=== PATIENT | male | born 1940 | race Caucasian/White ===

== ENCOUNTER 2024-04-20 20:45 | Inpatient (IN) | payer MEDICARE, OTHER ==
[~2024-04-20] VITALS: Ht 162.6 cm; Wt 56.7 kg
[2024-04-20] MEDS ORDERED: MAGNESIUM HYDROXIDE 30 ML LIQUID UDC PO PRN (21:15)
[2024-04-20] MEDS ORDERED: ACETAMINOPHEN 325 MG TABLET PO PRN (21:15)
[2024-04-20] MEDS: BLOOD SUGAR DIAGNOSTIC 1 EACH STRIP VI ONE (21:21)
[2024-04-20] MEDS ORDERED: METH100V6 PO (21:40)
[2024-04-20] MEDS ORDERED: SENN-228 PO (21:40)
[2024-04-20] MEDS ORDERED: LATA2.5D15 EACHEYE (21:40)
[2024-04-20] MEDS ORDERED: AMLO10TA59 PO (21:40)
[2024-04-20] MEDS ORDERED: BISA10SU61 RC (21:40)
[2024-04-20] MEDS ORDERED: HYDR-894 PO (21:40)
[2024-04-20] MEDS ORDERED: MULT-213 PO (21:40)
[2024-04-20] MEDS ORDERED: GABA300C PO (21:40)
[2024-04-20] MEDS ORDERED: NA P133E RC (21:40)
[2024-04-20] MEDS ORDERED: ASPI81TA31 PO (21:40)
[2024-04-20] MEDS ORDERED: ATOR40TA PO (21:40)
[2024-04-20] MEDS ORDERED: DOCU-141 PO (21:40)
[2024-04-20] MEDS ORDERED: ZOLPIDEM 5 MG TABLET PO PRN (23:00)
[2024-04-21 08:18] VITALS: BP 137/85; TEMP 98.3; O2SAT 98
[2024-04-21] MEDS ORDERED: MAGN400O6 PO (08:56)
[2024-04-21] MEDS ORDERED: GABA100C PO (08:56)
[2024-04-21] MEDS ORDERED: CHOL-35 PO (08:56)
[2024-04-21] MEDS: ASPIRIN 81 MG TAB.CHEW PO SCH (13:47)
[2024-04-21] MEDS: SERTRALINE HCL 50 MG TABLET PO SCH (13:47)
[2024-04-21] MEDS: CHOLECALCIFEROL 1,000 UNIT TABLET PO SCH (14:34)
[2024-04-21] MEDS: AMLODIPINE 10 MG TABLET PO SCH (14:34)
[2024-04-21] MEDS: GABAPENTIN 100 MG CAPSULE PO SCH (14:34)
[2024-04-21 16:28] VITALS: BP 124/81; TEMP 98; O2SAT 100
[2024-04-21] MEDS: MULTIVITAMINS,THERAPEUTIC TABLET PO SCH (17:19)
[2024-04-21] MEDS: SENNOSIDES/DOCUSATE SODIUM TABLET PO SCH (17:19)
[2024-04-21 20:06] VITALS: BP 130/78; TEMP 98.1; O2SAT 98
[2024-04-21] MEDS: QUETIAPINE FUMARATE 25 MG TABLET PO PRN (21:25)
[2024-04-21] MEDS: LATANOPROST OPHT DROP 2.5 ML BOTTLE EACHEYE SCH (21:26)
[2024-04-21] MEDS: ATORVASTATIN 40 MG TABLET PO SCH (21:26)
[2024-04-22 07:32] LABS: BASOPHILS # (AUTO) 0.1 K/UL (0.0-0.2); BASOPHILS % (AUTO) 1.1 % (0.0-2.0); EOSINOPHILS # (AUTO) 0.1 K/uL (0.0-0.7); EOSINOPHILS % (AUTO) 1.9 % (0.0-7.0); HEMATOCRIT 40.8 % (36.7-47.1); HEMOGLOBIN 13.5 g/dL (12.5-16.3); LYMPHOCYTES # (AUTO) 2.2 K/uL (0.8-4.8); LYMPHOCYTES % (AUTO) 30.1 % (20.5-51.5); MEAN CORPUSCULAR HEMOGLOBIN 28.5 uug (23.8-33.4); MEAN CORPUSCULAR HGB CONC 33 g/dL (32.5-36.3); MEAN CORPUSCULAR VOLUME 86.1 fL (73.0-96.2); MONOCYTES # (AUTO) 0.6 K/uL (0.1-1.30); MONOCYTES % (AUTO) 8.7 % (0.0-11.0); NEUTROPHILS # (AUTO) 4.3 K/uL (1.8-8.9); NEUTROPHILS % (AUTO) 58.2 % (38.5-71.5); PLATELET COUNT (AUTO) 182 K/uL (152-348); RED BLOOD CELL COUNT(AUTO) 4.74 MIL/uL (4.06-5.63); RED CELL DISTRIBUTION WIDTH 14.9 % (12.1-16.2); WHITE BLOOD COUNT (AUTO) 7.3 K/uL (3.6-10.2)
[2024-04-22 07:45] LABS: DIFFERENTIAL COMMENT 1
[2024-04-22 07:53] VITALS: BP 155/77; TEMP 98; O2SAT 98
[2024-04-22 07:59] LABS: ALANINE AMINOTRANSFERASE 22 U/L (16-63); ALBUMIN 3.3 g/dL (3.4-5.0); ALKALINE PHOSPHATASE 104 U/L (50-136); ASPARTATE AMINOTRANSFERASE 22 U/L (15-37); BILIRUBIN,TOTAL 1.7 mg/dL (0.2-1.0); CARBON DIOXIDE 26 mmol/L (21-32); CHLORIDE 103 mmol/L (98-107); CREATININE 0.9 mg/dL (0.6-1.3); GLUCOSE 100 mg/dL (74-106); SODIUM SERUM 138 mmol/L (136-145); TOTAL PROTEIN, SERUM 7.3 g/dL (6.4-8.2); UREA NITROGEN, BLOOD 20 mg/dL (7-18)
[2024-04-22] MEDS: ENSURE ENLIVE (VAN) 240 ML LIQUID PO SCH (09:00)
[2024-04-22 15:09] VITALS: BP 113/64; TEMP 98; O2SAT 99
[2024-04-22 20:20] VITALS: BP 133/69; TEMP 97.1; O2SAT 98
[2024-04-22] MEDS: MAG HYDROX/AL HYDROX/SIMETH 30 ML LIQUID UDC PO PRN (20:22)
[2024-04-23 08:05] VITALS: BP 141/87; TEMP 98; O2SAT 98
[2024-04-23 15:14] VITALS: BP 113/63; TEMP 98; O2SAT 98
[2024-04-23 19:55] VITALS: BP 130/52; TEMP 98.1; O2SAT 98
[2024-04-24 08:20] VITALS: BP 163/82; TEMP 97.9; O2SAT 99
[2024-04-24 16:14] VITALS: BP 108/67; TEMP 98; O2SAT 100
[2024-04-24 20:00] VITALS: BP 129/70; TEMP 97.2; O2SAT 96
[2024-04-24] MEDS: ZOLPIDEM 5 MG TABLET PO PRN (21:06)
[2024-04-25 08:16] VITALS: BP 156/93; TEMP 98; O2SAT 99
[2024-04-25 16:50] VITALS: BP 150/81; TEMP 98.3; O2SAT 98
[2024-04-25 19:44] VITALS: BP 144/72; TEMP 98; O2SAT 97
[2024-04-25] MEDS: OXCARBAZEPINE 150 MG TABLET PO SCH (21:24)
[2024-04-26 07:30] VITALS: BP 128/76; TEMP 98; O2SAT 100
[2024-04-26 15:13] VITALS: BP 115/54; TEMP 98; O2SAT 98
[2024-04-26 19:05] LABS: BASOPHILS % (AUTO) 0.5 % (0.0-2.0); EOSINOPHILS % (AUTO) 0.3 % (0.0-7.0); HEMATOCRIT 43.8 % (36.7-47.1); LYMPHOCYTES # (AUTO) 1.8 K/uL (0.8-4.8); LYMPHOCYTES % (AUTO) 25.2 % (20.5-51.5); MEAN CORPUSCULAR HEMOGLOBIN 28.8 uug (23.8-33.4); MEAN CORPUSCULAR HGB CONC 34 g/dL (32.5-36.3); MONOCYTES # (AUTO) 0.4 K/uL (0.1-1.30); MONOCYTES % (AUTO) 5.5 % (0.0-11.0); NEUTROPHILS # (AUTO) 4.8 K/uL (1.8-8.9); NEUTROPHILS % (AUTO) 68.5 % (38.5-71.5); PLATELET COUNT (AUTO) 180 K/uL (152-348); RED BLOOD CELL COUNT(AUTO) 5.21 MIL/uL (4.06-5.63); RED CELL DISTRIBUTION WIDTH 14.2 % (12.1-16.2)
[2024-04-26 19:06] LABS: DIFFERENTIAL COMMENT 1
[2024-04-26 19:15] LABS: CALCIUM 9.2 mg/dL (8.5-10.1); CARBON DIOXIDE 26 mmol/L (21-32); CHLORIDE 97 mmol/L (98-107); GLUCOSE 133 mg/dL (74-106); POTASSIUM 3.7 mmol/L (3.5-5.1); SODIUM SERUM 132 mmol/L (136-145); UREA NITROGEN, BLOOD 15 mg/dL (7-18)
[2024-04-26 19:58] VITALS: BP 142/54; TEMP 97.9; O2SAT 98
[2024-04-26] MEDS ORDERED: AMOXICILLIN-CLAVUL 500-125MG TABLET ONE (21:25)
[2024-04-26] MEDS ORDERED: ATORVASTATIN 20 MG TABLET ONE (21:25)
[2024-04-26] MEDS: AMOXICILLIN-CLAVUL 500-125MG TABLET PO SCH (21:52)
[2024-04-27 07:33] LABS: BASOPHILS % (AUTO) 0.6 % (0.0-2.0); EOSINOPHILS # (AUTO) 0.2 K/uL (0.0-0.7); EOSINOPHILS % (AUTO) 2.8 % (0.0-7.0); HEMATOCRIT 41.9 % (36.7-47.1); HEMOGLOBIN 14.4 g/dL (12.5-16.3); LYMPHOCYTES # (AUTO) 1.9 K/uL (0.8-4.8); LYMPHOCYTES % (AUTO) 25.2 % (20.5-51.5); MEAN CORPUSCULAR HEMOGLOBIN 29.1 uug (23.8-33.4); MEAN CORPUSCULAR HGB CONC 34 g/dL (32.5-36.3); MEAN CORPUSCULAR VOLUME 84.8 fL (73.0-96.2); MONOCYTES # (AUTO) 0.7 K/uL (0.1-1.30); MONOCYTES % (AUTO) 9.5 % (0.0-11.0); NEUTROPHILS # (AUTO) 4.6 K/uL (1.8-8.9); NEUTROPHILS % (AUTO) 61.9 % (38.5-71.5); PLATELET COUNT (AUTO) 175 K/uL (152-348); RED BLOOD CELL COUNT(AUTO) 4.94 MIL/uL (4.06-5.63); RED CELL DISTRIBUTION WIDTH 14.3 % (12.1-16.2); WHITE BLOOD COUNT (AUTO) 7.4 K/uL (3.6-10.2)
[2024-04-27 07:42] LABS: DIFFERENTIAL COMMENT 1
[2024-04-27 07:49] LABS: CALCIUM 9.2 mg/dL (8.5-10.1); CARBON DIOXIDE 28 mmol/L (21-32); CHLORIDE 100 mmol/L (98-107); CREATININE 0.9 mg/dL (0.6-1.3); GLUCOSE 99 mg/dL (74-106); MAGNESIUM 2.1 mg/dL (1.8-2.4); PHOSPHOROUS 3.6 mg/dL (2.5-4.9); POTASSIUM 3.9 mmol/L (3.5-5.1); SODIUM SERUM 134 mmol/L (136-145); UREA NITROGEN, BLOOD 12 mg/dL (7-18)
[2024-04-27 08:08] VITALS: BP 114/73; TEMP 98.4; O2SAT 98
[2024-04-27 15:24] VITALS: BP 142/69; TEMP 98; O2SAT 98
[2024-04-27 21:36] VITALS: BP 141/74; TEMP 98; O2SAT 98
[2024-04-28 08:16] VITALS: BP 131/77; TEMP 97.7; O2SAT 100
[2024-04-28 16:24] VITALS: BP 132/55; TEMP 98.1; O2SAT 100
[2024-04-28 19:57] VITALS: BP 136/61; TEMP 98.1; O2SAT 99
[2024-04-28] MEDS: ATORVASTATIN 10 MG TABLET PO SCH (20:54)
[2024-04-29 08:36] LABS: CALCIUM 9.3 mg/dL (8.5-10.1); CARBON DIOXIDE 28 mmol/L (21-32); CHLORIDE 100 mmol/L (98-107); GLUCOSE 141 mg/dL (74-106); POTASSIUM 3.7 mmol/L (3.5-5.1); SODIUM SERUM 137 mmol/L (136-145); UREA NITROGEN, BLOOD 17 mg/dL (7-18)
[2024-04-29 08:50] VITALS: BP 125/72; TEMP 98; O2SAT 98
[2024-04-29 15:29] VITALS: BP 133/73; TEMP 98; O2SAT 98
[2024-04-29 19:43] VITALS: BP_SYST 117; BP_SYST 133; BP_DIAS 62; BP_DIAS 73; TEMP 98; O2SAT 98
[2024-04-30 07:30] VITALS: BP 148/89; TEMP 97.3; O2SAT 99
[2024-04-30 17:02] VITALS: BP 132/71; TEMP 97.3; O2SAT 97
[2024-04-30 20:17] VITALS: BP 141/78; TEMP 97.8; O2SAT 96
[2024-04-30] MEDS: OXCARBAZEPINE 150 MG TABLET PO SCH (20:53)
[2024-05-01 08:18] VITALS: BP 122/57; TEMP 98.3; O2SAT 100
[2024-05-01 16:22] VITALS: BP 140/75; TEMP 98; O2SAT 97
[2024-05-01 20:15] VITALS: BP 136/66; TEMP 98.1; O2SAT 96
[2024-05-02 08:20] VITALS: BP 130/63; TEMP 98.1; O2SAT 99
[2024-05-02 08:27] VITALS: BP 136/72
== END 2024-05-02 15:45 | DRG 885 ==
LOC: GPS 20:45
PROVIDERS: ADMIT Psychiatry & Neurology Psychiatry; ATTEND Nurse Practitioner Acute Care
DX: F39 Unspecified mood [affective] disorder (principal); E44.1 Mild protein-calorie malnutrition; F03.911 Unspecified dementia, unspecified severity, with agitation; F03.92 Unspecified dementia, unspecified severity, with psychotic disturbance; E78.5 Hyperlipidemia, unspecified; J84.10 Pulmonary fibrosis, unspecified; E88.09 Other disorders of plasma-protein metabolism, not elsewhere classified; M15.9 Polyosteoarthritis, unspecified; I10 Essential (primary) hypertension; Z87.01 Personal history of pneumonia (recurrent); Z79.899 Other long term (current) drug therapy; F32.A Depression, unspecified; G47.00 Insomnia, unspecified
CPT/HCPCS: 36415; 71045; 83735; 84100; 85025

== ENCOUNTER 2024-06-04 14:00 | Inpatient (IN) | payer MEDICARE, OTHER ==
[~2024-06-04] VITALS: Ht 172.7 cm; Wt 72.6 kg
[~2024-06-04 14:00] MED LIST: AMLO10TA59 PO; ASPI81TA31 PO; ATOR40TA PO; BISA10SU61 RC; CHOL-35 PO; DOCU-141 PO; GABA100C PO; HYDR-894 PO; LATA2.5D15 EACHEYE; MAGN400O6 PO; METH100V6 PO; MULT-213 PO; NA P133E RC; SENN-228 PO
[2024-06-04] MEDS: IV NORMAL SALINE 1000 ML BAG IV ONE ×2 (14:30→17:07)
[2024-06-04] MEDS ORDERED: METRONIDAZOLE 500 MG/NS 100ML 100 ML IV ONE (14:33)
[2024-06-04] MEDS ORDERED: VANCOMYCIN IV 200 ML ONE (14:33)
[2024-06-04] MEDS ORDERED: CEFTRIAXONE /D5W 50ML IVPB **ER PYXIS IV ONE (14:33)
[2024-06-04] MEDS: CEFTRIAXONE 1 G in IV DEXTROSE 5% 50 ML IV ONE (14:33)
[2024-06-04 14:42] LABS: BASOPHILS # (AUTO) 0.1 K/UL (0.0-0.2); BASOPHILS % (AUTO) 0.2 % (0.0-2.0); EOSINOPHILS # (AUTO) 0.3 K/uL (0.0-0.7); EOSINOPHILS % (AUTO) 0.8 % (0.0-7.0); HEMOGLOBIN 18.3 g/dL (12.5-16.3); LYMPHOCYTES # (AUTO) 0.6 K/uL (0.8-4.8); LYMPHOCYTES % (AUTO) 1.4 % (20.5-51.5); MEAN CORPUSCULAR HGB CONC 33 g/dL (32.5-36.3); MEAN CORPUSCULAR VOLUME 84.2 fL (73.0-96.2); MONOCYTES # (AUTO) 1.1 K/uL (0.1-1.30); MONOCYTES % (AUTO) 2.9 % (0.0-11.0); NEUTROPHILS # (AUTO) 36.2 K/uL (1.8-8.9); NEUTROPHILS % (AUTO) 94.7 % (38.5-71.5); PLATELET COUNT (AUTO) 378 K/uL (152-348); RED CELL DISTRIBUTION WIDTH 14.5 % (12.1-16.2)
[2024-06-04 14:47] LABS: ABG BASE EXCESS -7.4 mmol/L (-2.0-3.0); ABG HCO3 13.8 mmol/L (21.0-28.0); ABG PCO2 21.7 mmHg (35.0-48.0); ABG PH 7.421 (7.350-7.450); ABG PO2 98.9 mmHg (83.0-108.0); ABG SITE RIGHT RADIAL; ABG TOTAL HEMOGLOBIN 19.9 G/dL (13.5-17.5); AaDO2 97.7 mmHg; COHb 0.2 % (0.5-1.5); MetHb 0.8 % (0.0-1.5); O2Hb 96.7 % (94.0-98.0)
[2024-06-04 14:50] LABS: DIFFERENTIAL COMMENT 1; RED BLOOD CELL COUNT(AUTO) 6.54 MIL/uL (4.06-5.63)
[2024-06-04 14:51] LABS: CALCIUM 8.7 mg/dL (8.5-10.1); CARBON DIOXIDE 18 mmol/L (21-32); CHLORIDE 92 mmol/L (98-107); CREATININE 3.5 mg/dL (0.6-1.3); GLUCOSE 155 mg/dL (74-106); POTASSIUM 4.4 mmol/L (3.5-5.1); SODIUM SERUM 128 mmol/L (136-145); WHITE BLOOD COUNT (AUTO) 38.2 K/uL (3.6-10.2)
[2024-06-04] MEDS ORDERED: MAGN400T30 PO (14:57)
[2024-06-04] MEDS ORDERED: ACET-2154 PO (14:57)
[2024-06-04] MEDS ORDERED: ACET-2605 PO (14:57)
[2024-06-04] MEDS ORDERED: BACL10TA PO (14:57)
[2024-06-04] MEDS: VANCOMYCIN IV 1,000 MG in IV DEXTROSE 5% 250 ML IV ONE (15:00)
[2024-06-04 15:03] LABS: LACTIC ACID 3.5 mmol/L (0.4-2.0); UREA NITROGEN, BLOOD 90 mg/dL (7-18)
[2024-06-04 15:04] LABS: ALANINE AMINOTRANSFERASE 25 U/L (16-63); ALBUMIN 2.2 g/dL (3.4-5.0); ALKALINE PHOSPHATASE 118 U/L (50-136); ASPARTATE AMINOTRANSFERASE 45 U/L (15-37); BILIRUBIN,DIRECT 0.4 mg/dL (0.0-0.2); BILIRUBIN,TOTAL 1.1 mg/dL (0.2-1.0); NT-PRO BNP 3718 pg/mL (0-125); TOTAL PROTEIN, SERUM 6.3 g/dL (6.4-8.2)
[2024-06-04] MEDS: METRONIDAZOLE 500 MG/NS 100ML 100 ML IV ONE (15:17)
[2024-06-04 15:30] LABS: ANISOCYTOSIS 1+; BAND % (MANUAL) 12 % (0-10); LYMPHOCYTES % (MANUAL) 4 % (20-40); MONOCYTES % (MANUAL) 1 % (2-10); NEUTROPHILS % (MANUAL) 83 % (42-75); PLATELET ESTIMATE ADEQUATE; TEAR DROP CELLS 1+
[2024-06-04 15:31] LABS: OVALOCYTES OCC
[2024-06-04 15:31] LABS: *BILIRUBIN,URIN 1+ (NEGATIVE); *BLOOD, URINE NEGATIVE (NEGATIVE); *CLARITY,URINE CLEAR (CLEAR); *KETONES,URINE NEGATIVE (NEGATIVE); *PROTEIN,URINE 1+ (NEGATIVE); *UROBILINOGEN,URINE 0.2 E.U./dl (NORMAL); LEUKOCYTE ESTERASE ,URINE NEGATIVE (NEGATIVE); NITRITE, URINE NEGATIVE (NEGATIVE); PH,URINE 5.5 (5.0-8.0); UGLUCOSE NEGATIVE (NEGATIVE)
[2024-06-04 15:39] LABS: *COLOR,URINE DARK YELLOW (YELLOW)
[2024-06-04 16:02] LABS: BACTERIA,URINE FEW /HPF (NONE SEEN); RBC,URINE NONE SEEN /HPF (0-3); SQUAMOUS EPITHELIAL CELL,UR FEW /HPF (NONE SEEN); WBC,URINE 0-3 /HPF (0-3)
[2024-06-04] MEDS: IV NS 1000 ML 1,000 ML IV SCH (17:45)
[2024-06-04] MEDS ORDERED: MAGNESIUM HYDROXIDE 30 ML LIQUID UDC PO PRN (17:45)
[2024-06-04] MEDS ORDERED: ACETAMINOPHEN 325 MG TABLET PO PRN (17:45)
[2024-06-04] MEDS: ENOXAPARIN SODIUM 40 MG/0.4 ML DISP.SYRIN SQ SCH (18:07)
[2024-06-04] MEDS ORDERED: ENOXAPARIN SODIUM 40 MG/0.4 ML DISP.SYRIN SQ ONE (18:07)
[2024-06-04 19:55] VITALS: BP 130/54; TEMP 97.4; O2SAT 97
[2024-06-04 20:45] LABS: BASOPHILS % (AUTO) 0.1 % (0.0-2.0); EOSINOPHILS # (AUTO) 0.1 K/uL (0.0-0.7); EOSINOPHILS % (AUTO) 0.3 % (0.0-7.0); HEMATOCRIT 48.9 % (36.7-47.1); HEMOGLOBIN 16.3 g/dL (12.5-16.3); LYMPHOCYTES # (AUTO) 0.5 K/uL (0.8-4.8); LYMPHOCYTES % (AUTO) 1.3 % (20.5-51.5); MEAN CORPUSCULAR HEMOGLOBIN 27.8 uug (23.8-33.4); MEAN CORPUSCULAR HGB CONC 33 g/dL (32.5-36.3); MEAN CORPUSCULAR VOLUME 83.2 fL (73.0-96.2); MONOCYTES # (AUTO) 1.1 K/uL (0.1-1.30); MONOCYTES % (AUTO) 3.2 % (0.0-11.0); NEUTROPHILS # (AUTO) 33.9 K/uL (1.8-8.9); NEUTROPHILS % (AUTO) 95.1 % (38.5-71.5); PLATELET COUNT (AUTO) 303 K/uL (152-348); RED BLOOD CELL COUNT(AUTO) 5.87 MIL/uL (4.06-5.63); RED CELL DISTRIBUTION WIDTH 14.4 % (12.1-16.2)
[2024-06-04 20:50] LABS: DIFFERENTIAL COMMENT 1
[2024-06-04 20:52] LABS: CALCIUM 6.7 mg/dL (8.5-10.1); CARBON DIOXIDE 17 mmol/L (21-32); CHLORIDE 102 mmol/L (98-107); CREATININE 2.5 mg/dL (0.6-1.3); GLUCOSE 106 mg/dL (74-106); POTASSIUM 3.9 mmol/L (3.5-5.1); SODIUM SERUM 134 mmol/L (136-145); UREA NITROGEN, BLOOD 78 mg/dL (7-18)
[2024-06-04 20:53] LABS: WHITE BLOOD COUNT (AUTO) 35.7 K/uL (3.6-10.2)
[2024-06-04 21:15] LABS: BAND % (MANUAL) 9 % (0-10); LYMPHOCYTES % (MANUAL) 2 % (20-40); MONOCYTES % (MANUAL) 3 % (2-10); MYELOCYTES % 1 % (0-0); NEUTROPHILS % (MANUAL) 85 % (42-75)
[2024-06-04 21:16] LABS: ANISOCYTOSIS 1+; PLATELET ESTIMATE ADEQUATE
[2024-06-04] MEDS ORDERED: METRONIDAZOLE 500 MG/NS 100ML 200 ML IV ONE (21:19)
[2024-06-04] MEDS: METRONIDAZOLE 500 MG/NS 100ML 500 MG in PREMIXED 1 EACH IV SCH (22:46)
[2024-06-05 00:18] VITALS: BP 91/70; TEMP 97.5; O2SAT 97
[2024-06-05] MEDS: ONDANSETRON 4 MG/2 ML VIAL IV PRN (02:33)
[2024-06-05 04:47] VITALS: BP 137/73; TEMP 97.5; O2SAT 100
[2024-06-05 06:40] LABS: BASOPHILS # (AUTO) 0.1 K/UL (0.0-0.2); BASOPHILS % (AUTO) 0.5 % (0.0-2.0); EOSINOPHILS # (AUTO) 0.3 K/uL (0.0-0.7); EOSINOPHILS % (AUTO) 0.9 % (0.0-7.0); HEMATOCRIT 48.6 % (36.7-47.1); HEMOGLOBIN 16.3 g/dL (12.5-16.3); LYMPHOCYTES # (AUTO) 0.3 K/uL (0.8-4.8); LYMPHOCYTES % (AUTO) 1.1 % (20.5-51.5); MEAN CORPUSCULAR HEMOGLOBIN 28.2 uug (23.8-33.4); MEAN CORPUSCULAR HGB CONC 34 g/dL (32.5-36.3); MONOCYTES # (AUTO) 0.2 K/uL (0.1-1.30); MONOCYTES % (AUTO) 0.5 % (0.0-11.0); NEUTROPHILS # (AUTO) 29.5 K/uL (1.8-8.9); PLATELET COUNT (AUTO) 290 K/uL (152-348); RED BLOOD CELL COUNT(AUTO) 5.78 MIL/uL (4.06-5.63); RED CELL DISTRIBUTION WIDTH 14.6 % (12.1-16.2)
[2024-06-05 06:54] LABS: CALCIUM 7.1 mg/dL (8.5-10.1); CARBON DIOXIDE 14 mmol/L (21-32); CHLORIDE 105 mmol/L (98-107); CREATININE 2.3 mg/dL (0.6-1.3); GLUCOSE 119 mg/dL (74-106); MAGNESIUM 3.5 mg/dL (1.8-2.4); PHOSPHOROUS 5.7 mg/dL (2.5-4.9); POTASSIUM 3.7 mmol/L (3.5-5.1); SODIUM SERUM 134 mmol/L (136-145)
[2024-06-05 06:57] LABS: DIFFERENTIAL COMMENT 1; WHITE BLOOD COUNT (AUTO) 30.4 K/uL (3.6-10.2)
[2024-06-05 07:00] LABS: UREA NITROGEN, BLOOD 82 mg/dL (7-18)
[2024-06-05 07:59] VITALS: BP 131/77; TEMP 97.6; O2SAT 99
[2024-06-05] MEDS: VANCOMYCIN IV 500 MG in IV DEXTROSE 5% 100 ML IV ONE (08:50)
[2024-06-05 12:00] VITALS: BP 142/53; TEMP 97.6; O2SAT 98
[2024-06-05] MEDS ORDERED: MAG30ORA PO (12:53)
[2024-06-05] MEDS ORDERED: ASPI-1169 PO (12:54)
[2024-06-05] MEDS ORDERED: CRAN450T9 PO (12:56)
[2024-06-05] MEDS ORDERED: ATOR10TA PO (12:56)
[2024-06-05] MEDS ORDERED: SENN8.6T19 PO (12:58)
[2024-06-05] MEDS ORDERED: SERT-438 PO (12:58)
[2024-06-05] MEDS: CEFTRIAXONE 1 G in IV DEXTROSE 5% 50 ML IV SCH (13:39)
[2024-06-05] MEDS: SERTRALINE HCL 50 MG TABLET PO SCH (14:52)
[2024-06-05 15:09] LABS: BAND % (MANUAL) 48 % (0-10); LYMPHOCYTES % (MANUAL) 2 % (20-40); METAMYELOCYTES % 7 % (0-1); NEUTROPHILS % (MANUAL) 43 % (42-75); PLATELET ESTIMATE ADEQUATE
[2024-06-05 16:16] VITALS: BP 131/63; TEMP 97.5; O2SAT 98
[2024-06-05] MEDS: GABAPENTIN 100 MG CAPSULE PO SCH (17:00)
[2024-06-05 19:50] VITALS: BP 117/71; TEMP 98.1; O2SAT 96
[2024-06-05] MEDS: HEPARIN SODIUM,PORCINE 5,000 UNITS/ML VIAL SQ SCH (20:35)
[2024-06-05] MEDS ORDERED: MEROPENEM 500 MG in IV NORMAL SALINE 50 ML IV ONE (22:30)
[2024-06-06] VITALS (53 sets, daily range): BP systolic 52–181; BP diastolic 32–81; TEMP 95.8–97.3; O2SAT 70–100
[2024-06-06] MEDS ORDERED: MEROPENEM 500MG/NS 50ML PB ***ER PYXIS ONLY IV ONE (00:32)
[2024-06-06] MEDS: MEROPENEM 500 MG in IV NORMAL SALINE 50 ML IV ONE (00:38)
[2024-06-06 06:41] LABS: BASOPHILS # (AUTO) 0.1 K/UL (0.0-0.2); BASOPHILS % (AUTO) 0.1 % (0.0-2.0); EOSINOPHILS # (AUTO) 0.7 K/uL (0.0-0.7); EOSINOPHILS % (AUTO) 1.7 % (0.0-7.0); HEMATOCRIT 46.3 % (36.7-47.1); HEMOGLOBIN 15.2 g/dL (12.5-16.3); LYMPHOCYTES # (AUTO) 0.4 K/uL (0.8-4.8); LYMPHOCYTES % (AUTO) 1.1 % (20.5-51.5); MEAN CORPUSCULAR HGB CONC 33 g/dL (32.5-36.3); MEAN CORPUSCULAR VOLUME 85.1 fL (73.0-96.2); MONOCYTES # (AUTO) 0.2 K/uL (0.1-1.30); MONOCYTES % (AUTO) 0.6 % (0.0-11.0); NEUTROPHILS # (AUTO) 38.6 K/uL (1.8-8.9); NEUTROPHILS % (AUTO) 96.5 % (38.5-71.5); PLATELET COUNT (AUTO) 240 K/uL (152-348); RED BLOOD CELL COUNT(AUTO) 5.44 MIL/uL (4.06-5.63)
[2024-06-06 06:52] LABS: DIFFERENTIAL COMMENT 1
[2024-06-06 06:57] LABS: CALCIUM 7.6 mg/dL (8.5-10.1); CARBON DIOXIDE 12 mmol/L (21-32); CHLORIDE 108 mmol/L (98-107); CREATININE 2.5 mg/dL (0.6-1.3); GLUCOSE 96 mg/dL (74-106); MAGNESIUM 3.5 mg/dL (1.8-2.4); PHOSPHOROUS 5.7 mg/dL (2.5-4.9); POTASSIUM 4.2 mmol/L (3.5-5.1); SODIUM SERUM 138 mmol/L (136-145)
[2024-06-06 07:01] LABS: UREA NITROGEN, BLOOD 92 mg/dL (7-18)
[2024-06-06] MEDS: VANCOMYCIN IV 500 MG in IV DEXTROSE 5% 100 ML IV ONE (08:40)
[2024-06-06] MEDS ORDERED: SERTRALINE HCL PO SCH (09:00)
[2024-06-06] MEDS ORDERED: IV NORMAL SALINE 500 ML BAG IV ONE (09:45)
[2024-06-06] MEDS: IV NORMAL SALINE 500 ML IV ONE (09:45)
[2024-06-06] MEDS ORDERED: NOREPINEPHRINE 8MG/NS 250ML 250 ML IV PRN (11:15)
[2024-06-06] MEDS: NOREPINEPHRINE 8MG/NS 250ML 250 ML IV PRN (11:53)
[2024-06-06] MEDS: SODIUM BICARBONATE 8.4% 50 MEQ in IV D5 1/2 NS 1000 ML 1,000 ML IV SCH (11:55)
[2024-06-06] MEDS: PROPOFOL 100 ML IV PRN (11:55)
[2024-06-06] MEDS: NOREPINEPHRINE 8MG/NS 250ML 250 ML IV ONE (12:02)
[2024-06-06 12:05] LABS: ABG BASE EXCESS -16.2 mmol/L (-2.0-3.0); ABG HCO3 6.7 mmol/L (21.0-28.0); ABG PCO2 13.9 mmHg (35.0-48.0); ABG PH 7.304 (7.350-7.450); ABG PO2 85.4 mmHg (83.0-108.0); ABG SITE RIGHT RADIAL; ABG TOTAL HEMOGLOBIN 16.3 G/dL (13.5-17.5); AaDO2 95.9 mmHg; COHb 0.7 % (0.5-1.5); MetHb 0.2 % (0.0-1.5); O2Hb 94.6 % (94.0-98.0)
[2024-06-06] MEDS: MEROPENEM 500 MG in IV NORMAL SALINE 50 ML IV SCH (12:08)
[2024-06-06 12:25] LABS: BASOPHILS # (AUTO) 0.1 K/UL (0.0-0.2); BASOPHILS % (AUTO) 0.1 % (0.0-2.0); EOSINOPHILS # (AUTO) 0.8 K/uL (0.0-0.7); EOSINOPHILS % (AUTO) 1.6 % (0.0-7.0); HEMATOCRIT 47.3 % (36.7-47.1); HEMOGLOBIN 15.1 g/dL (12.5-16.3); LYMPHOCYTES # (AUTO) 0.6 K/uL (0.8-4.8); LYMPHOCYTES % (AUTO) 1.2 % (20.5-51.5); MEAN CORPUSCULAR HGB CONC 32 g/dL (32.5-36.3); MEAN CORPUSCULAR VOLUME 87.4 fL (73.0-96.2); MONOCYTES # (AUTO) 0.3 K/uL (0.1-1.30); MONOCYTES % (AUTO) 0.5 % (0.0-11.0); NEUTROPHILS # (AUTO) 51.3 K/uL (1.8-8.9); NEUTROPHILS % (AUTO) 96.6 % (38.5-71.5); PLATELET COUNT (AUTO) 223 K/uL (152-348); RED BLOOD CELL COUNT(AUTO) 5.41 MIL/uL (4.06-5.63); RED CELL DISTRIBUTION WIDTH 15.3 % (12.1-16.2)
[2024-06-06 12:28] LABS: DIFFERENTIAL COMMENT 1; WHITE BLOOD COUNT (AUTO) 53.1 K/uL (3.6-10.2)
[2024-06-06 12:33] LABS: CALCIUM 7.6 mg/dL (8.5-10.1); CARBON DIOXIDE 10 mmol/L (21-32); CHLORIDE 109 mmol/L (98-107); CREATININE 2.8 mg/dL (0.6-1.3); GLUCOSE 69 mg/dL (74-106); POTASSIUM 4.8 mmol/L (3.5-5.1); SODIUM SERUM 141 mmol/L (136-145); UREA NITROGEN, BLOOD 91 mg/dL (7-18)
[2024-06-06] MEDS: IV LACTATED RINGERS SOLUTION 1,000 ML BAG IV ONE (12:40)
[2024-06-06] MEDS: FAMOTIDINE. 20 MG/2 ML VIAL IV SCH (12:50)
[2024-06-06] MEDS: HYDROCORTISONE SOD SUCCINATE 100 MG/2 ML VIAL IV SCH (12:50)
[2024-06-06] MEDS: PANTOPRAZOLE SODIUM 40 MG VIAL IV SCH (14:45)
[2024-06-06 15:35] LABS: NEUTROPHILS % (MANUAL) 52 % (42-75)
[2024-06-06 15:36] LABS: ANISOCYTOSIS 1+; BAND % (MANUAL) 39 % (0-10); LYMPHOCYTES % (MANUAL) 2 % (20-40); METAMYELOCYTES % 5 % (0-1); MONOCYTES % (MANUAL) 2 % (2-10); PLATELET ESTIMATE ADEQUATE
[2024-06-06 18:09] LABS: HEMATOCRIT 36.8 % (36.7-47.1); HEMOGLOBIN 11.8 g/dL (12.5-16.3)
[2024-06-07] VITALS (70 sets, daily range): BP systolic 51–119; BP diastolic 36–80; TEMP 97.4–98.1; O2SAT 99–100
[2024-06-07 04:44] LABS: BASOPHILS % (AUTO) 0.1 % (0.0-2.0); EOSINOPHILS # (AUTO) 0.5 K/uL (0.0-0.7); EOSINOPHILS % (AUTO) 0.9 % (0.0-7.0); HEMATOCRIT 43.5 % (36.7-47.1); HEMOGLOBIN 13.8 g/dL (12.5-16.3); LYMPHOCYTES # (AUTO) 0.8 K/uL (0.8-4.8); LYMPHOCYTES % (AUTO) 1.4 % (20.5-51.5); MEAN CORPUSCULAR HEMOGLOBIN 27.9 uug (23.8-33.4); MEAN CORPUSCULAR HGB CONC 32 g/dL (32.5-36.3); MEAN CORPUSCULAR VOLUME 88.1 fL (73.0-96.2); MONOCYTES # (AUTO) 1.3 K/uL (0.1-1.30); MONOCYTES % (AUTO) 2.3 % (0.0-11.0); NEUTROPHILS # (AUTO) 56.1 K/uL (1.8-8.9); NEUTROPHILS % (AUTO) 95.3 % (38.5-71.5); PLATELET COUNT (AUTO) 182 K/uL (152-348); RED BLOOD CELL COUNT(AUTO) 4.93 MIL/uL (4.06-5.63)
[2024-06-07 04:48] LABS: DIFFERENTIAL COMMENT 1; WHITE BLOOD COUNT (AUTO) 58.9 K/uL (3.6-10.2)
[2024-06-07 04:57] LABS: CARBON DIOXIDE 10 mmol/L (21-32); CHLORIDE 110 mmol/L (98-107); CREATININE 3.2 mg/dL (0.6-1.3); GLUCOSE 128 mg/dL (74-106); MAGNESIUM 3.6 mg/dL (1.8-2.4); POTASSIUM 5.9 mmol/L (3.5-5.1); SODIUM SERUM 138 mmol/L (136-145)
[2024-06-07 05:00] LABS: UREA NITROGEN, BLOOD 99 mg/dL (7-18)
[2024-06-07 05:01] LABS: PHOSPHOROUS 8.9 mg/dL (2.5-4.9)
[2024-06-07 05:47] LABS: ABG BASE EXCESS -19.2 mmol/L (-2.0-3.0); ABG HCO3 6.8 mmol/L (21.0-28.0); ABG PCO2 18.3 mmHg (35.0-48.0); ABG PH 7.187 (7.350-7.450); ABG PO2 155.6 mmHg (83.0-108.0); ABG SITE LEFT RADIAL; ABG TOTAL HEMOGLOBIN 14.5 G/dL (13.5-17.5); AaDO2 98.6 mmHg; COHb 0.3 % (0.5-1.5); MetHb 0.5 % (0.0-1.5); O2Hb 98.2 % (94.0-98.0); VT, ABG 550 mL
[2024-06-07 05:54] LABS: BAND % (MANUAL) 6 % (0-10); LYMPHOCYTES % (MANUAL) 3 % (20-40); MONOCYTES % (MANUAL) 1 % (2-10); MYELOCYTES % 1 % (0-0); NEUTROPHILS % (MANUAL) 89 % (42-75)
[2024-06-07 05:55] LABS: ANISOCYTOSIS 1+; PLATELET ESTIMATE ADEQUATE
[2024-06-07] MEDS ORDERED: NOREPINEPHRINE BITARTRATE 32 MG in IV NORMAL SALINE 218 ML IV PRN (08:00)
[2024-06-07] MEDS: VANCOMYCIN IV 500 MG in IV DEXTROSE 5% 100 ML IV ONE (09:34)
[2024-06-07] MEDS: MUPIROCIN 2% OINT 22 GM TUBE NS SCH (09:39)
[2024-06-07] MEDS: SODIUM BICARBONATE 8.4% 50 MEQ/50 ML DISP.SYRIN IV ONE (12:07)
[2024-06-07] MEDS: VANCOMYCIN FOR PO/GT/NG USE PO SCH (12:08)
[2024-06-07] MEDS: SODIUM BICARBONATE 8.4% 150 MEQ in IV D5W 1000ML 1,000 ML IV SCH (12:18)
[2024-06-07] MEDS: NOREPINEPHRINE BITARTRATE 32 MG in IV NORMAL SALINE 218 ML IV PRN (14:13)
[2024-06-07] MEDS: LORAZEPAM 2 MG/1 ML VIAL IV ONE (17:45)
[2024-06-07] MEDS: MORPHINE SULFATE 4 MG/1 ML DISP.SYRIN IV ONE (17:45)
[2024-06-07] MEDS ORDERED: DC PROPOFOL ONCE EXTUBATED XX PRN (17:45)
[2024-06-07] MEDS ORDERED: SODIUM ZIRCONIUM CYCLOSILICATE 10 GM POWD.PACK PO ONE (18:00)
== END 2024-06-07 19:15 | DRG 871 ==
LOC: ER 14:05 → DOU3 15:00 → TELE-TD3 20:44 → TELE3 06-05 17:10 → CCU 06-06 11:13
PROC: 0BH17EZ Insertion of Endotracheal Airway into Trachea, Via Natural or Artificial Opening (ICD-10-PCS; principal; 2024-06-06)
PROC: 5A1935Z Respiratory Ventilation, Less than 24 Consecutive Hours (ICD-10-PCS; 2024-06-06)
PROC: 02HV33Z Insertion of Infusion Device into Superior Vena Cava, Percutaneous Approach (ICD-10-PCS; 2024-06-06)
PROC: 02HV33Z Insertion of Infusion Device into Superior Vena Cava, Percutaneous Approach (ICD-10-PCS; 2024-06-06)
DX: A41.89 Other specified sepsis (principal); J15.69 Pneumonia due to other Gram-negative bacteria; J96.01 Acute respiratory failure with hypoxia; R65.21 Severe sepsis with septic shock; N17.0 Acute kidney failure with tubular necrosis; A04.72 Enterocolitis due to Clostridium difficile, not specified as recurrent; E87.1 Hypo-osmolality and hyponatremia; E87.20 Acidosis, unspecified; F01.52 Vascular dementia, unspecified severity, with psychotic disturbance; K92.2 Gastrointestinal hemorrhage, unspecified; J98.11 Atelectasis; Z51.5 Encounter for palliative care; Z66 Do not resuscitate; K52.9 Noninfective gastroenteritis and colitis, unspecified; E86.0 Dehydration; E87.5 Hyperkalemia; E86.1 Hypovolemia; Z95.1 Presence of aortocoronary bypass graft; Z95.2 Presence of prosthetic heart valve; Z95.5 Presence of coronary angioplasty implant and graft; R13.10 Dysphagia, unspecified; Z79.82 Long term (current) use of aspirin; J84.10 Pulmonary fibrosis, unspecified; E78.5 Hyperlipidemia, unspecified; M15.9 Polyosteoarthritis, unspecified; N18.9 Chronic kidney disease, unspecified; I25.10 Atherosclerotic heart disease of native coronary artery without angina pectoris; I12.9 Hypertensive chronic kidney disease with stage 1 through stage 4 chronic kidney disease, or unspecified chronic kidney disease; Z22.322 Carrier or suspected carrier of Methicillin resistant Staphylococcus aureus
CPT/HCPCS: 36415; 36600; 71045; 76770; 82803; 83605; 83735; 84100; 84484; 85018; 85025; 85730; 87040; 87086; 93307; 94002; 94003; 94760; 99082-TC; A4606; A4663; G0378; J0696; J1308; J1644; J1650; J1720; J2060; J2185; J2270; J2405; J2470; J3370; J3490; J7040; J7070; J7120